=== PATIENT | male | born 1980 | race Caucasian/White ===

== ENCOUNTER 2020-05-31 18:45 | Emergency (ER) | payer MEDICAID, SELFPAY ==
[2020-05-31 19:01] VITALS: BP 147/89; PULSE 69; RESP 19; TEMP 36.8; O2SAT 98; BMI 23.5
--- NOTE | 2020-05-31 19:23 | HMH.EDUTC ---
[facility] Disposition Clinical Impression: Eye problem Disposition: Home, Self-Care Condition on Discharge: Good Instructions: How to Get a Foreign Body Out of Your Eye, Eye Contusion, DI for Corneal Abrasion, Erythromycin Ophthalmic Additional Instructions: Wash hands well before and after applying ointment in eye *Follow up with [facility] on Tuesday if no improvement or any worsening of symptoms Return if needed Straight to ER if any life threatening symptoms Prescriptions: Erythromycin Base [Erythromycin 3.5gm opth oinment] 1 applicatio EYE-RIGHT QID 5 Days #1 tube Prescription Printed Referrals: PCPDelma [Primary Care Provider] - [facility] [Other] Time of Disposition: 19:37 Medical Decision Making - Clyde Inquiry Pt receiving controlled substance: No Clyde was queried for this patient: No Vital Signs: 05/31/20 19:01 Temperature 98.2 F Temperature Source Oral Pulse Rate [Right Brachial] 69 Respiratory Rate 19 Blood Pressure [Right Arm] 147/89 H Blood Pressure Mean [Right Arm] 108 Blood Pressure Source [Right Arm] Automatic Cuff Blood Pressure Position [Right Arm] Sitting 02 Sat by Pulse Oximetry 98 Oxygen Delivery Method Room Air Medical Decision Narrative: Discussed transfer to ED for eye examination with Pace lamp and stain States that eye feels better after flush, eye mildly red no obvious debris noted. Will start on eye ointment and have patient follow up with Dr latham on Tuesday if no improvement [facility] HPI - General Stated complaint: Poss FB in eye Time Seen by Provider: 05/31/20 19:23 Mode of Arrival: Ambulatory Source of Information: Patient Limitations: No Limitations Description of Symptoms (Recalled from Triage Doc. by RN): possible object in right eye HEENT Symptoms (Recalled from RN notes): Yes Resp Symptoms (Recalled from RN notes): No Skin Symptoms (Recalled from RN notes): No MS Symptoms (Recalled from RN notes): No Functional Status (Recalled from RN notes): none - History of Present Illness Provider Complaint: Patient states that he was cutting weeds 2-3 days ago and was wearing safety glasses but noticed after he come in that his eye felt a little scratchy States that he flushed his eyes and felt like what ever was in there came out but has felt a little discomfort on and off since States that he brought his wifes grandfather into the ER and wanted to come over and see if he could get some drops - Related Data Previous Rx's Medication Instructions Recorded Erythromycin Base [Erythromycin 1 applicatio EYE-RIGHT QID 5 Days 05/31/20 3.5gm opth oinment] #1 tube Allergies Allergy/AdvReac Type Severity Reaction Status Date / Time Penicillins Allergy Verified 05/31/20 18:54 - Worker's Comp Is this a Worker's Comp case?: No [facility] History - Hepatitis A Screen Drug use history?: No High risk sexual behaviors?: No History of sexually transmitted infection?: No Currently employed?: No Childcare worker?: No Do you have indoor plumbing?: Yes Do you have electricity?: Yes Attestation statement:: This patient has been screened for Hepatitis A risk factors. I have reviewed the patient's past medical history: Yes Medical History: Denies:: Cancer, Diabetes Mellitus Type 1, Diabetes Mellitus Type 2, MRSA Amputation: No Fractures: No - Social History Smoking Status: Current every day smoker Tobacco Type: cigarettes # Packs/Day (cigarettes): 1 Alcohol Intake: never Occupational Status: employed ROS Obtained: Yes All systems reviewed & no additional complaints, Yes Systems reviewed as appropriate & no additional complaints - Eyes Eyes: Denies blurry vision, Denies change in vision, Denies decreased night vision, Reports irritation Physical Exam - General General appearance: alert, in no apparent distress - Eye Eye exam: Present: PERRL, other (eye flushed well with saline, no obvious matter noted, patient reports no longer feels lik
[2020-05-31 19:42] VITALS: BP 142/89; PULSE 69; RESP 19; TEMP 36.8; O2SAT 98
== END 2020-05-31 19:43 | disposition home or self-care (01) ==
PROVIDERS: Emergency Provider Nurse Practitioner
DX: H57.9 Unspecified disorder of eye and adnexa (principal); F17.210 Nicotine dependence, cigarettes, uncomplicated
CPT/HCPCS: 99201